=== PATIENT | female | born 1965 | race Caucasian/White ===

== ENCOUNTER → 2018-02-01 | Outpatient (CLI) | payer OTHER ==
[~2018-02-01] MED LIST: IBUP200T64 PO; LEVO88TA4 PO; LIOT5TAB3 PO; [UNRECOGNIZED DRUG - OTHER] NAS
== END | disposition home or self-care (01) ==
LOC: CFH 12:33
PROVIDERS: ATTEND Obstetrics & Gynecology Female Pelvic Medicine and Reconstructive Surgery
DX: Z12.31 Encounter for screening mammogram for malignant neoplasm of breast (principal)
CPT/HCPCS: 77067